=== PATIENT | female | born 1960 | race Caucasian/White ===

== ENCOUNTER 2023-07-24 07:22 | Outpatient (CLI) | payer OTHER, SELFPAY ==
--- NOTE | ~2023-07-24 | XR_ITS ---
EXAM: XR hip RT 2V w AP pelvis DATE: 07/24/2023 08:11 HISTORY: M25.551 - Pain in right hip . COMPARISON: None available. FINDINGS: Decreased mineralization. No fracture or dislocation. No lytic or blastic lesion. Severe l umbar degenerative disc disease. Mild-moderate right hip superior joint space narrowing and subchondr al sclerosis. Mild degenerative change present in the left hip and symphysis pubis. No erosion or per iosteal change. Soft tissues within normal limits. IMPRESSION: Mild-moderate right hip osteoarthritis. Reviewed, dictated and finalized at location K.
== END 2023-07-24 07:23 ==
PROVIDERS: PCP Orthopaedic Surgery; Visit Provider Family Medicine
DX: M16.11 Unilateral primary osteoarthritis, right hip (principal); M25.551 Pain in right hip
CPT/HCPCS: 73502

== ENCOUNTER 2024-04-24 13:32 | Outpatient (CLI) | payer SELFPAY ==
--- NOTE | ~2024-04-24 | XR_ITS ---
EXAMINATION: XR lg joint inject/asp w image DATE: 04/24/2024 14:29 INDICATION: Right hip arthritis. TECHNIQUE: A time-out was performed to verify the patient's name, date of , and procedure to b e performed. The procedure including the risks, benefits, and alternatives was discussed with the pat ient. Risks discussed included bleeding and infection. The patient understood the risks and agreed to proceed. The skin overlying the right hip joint was prepped and draped in usual sterile fashion. A nesthetic was administered with 1% lidocaine subcutaneously. A 22 G needle was advanced under fluoro scopic guidance into the joint. Subsequently, injectate consisting of 2 mL 0.5% bupivacaine and 1 mL 80 mg/mL Depo-Medrol was instilled. The needle was removed and the entry site was cleaned and dresse d. There were no immediate complications. Fluoroscopy exposure time was 0.1 minutes. The total numbe r of images was 1. FINDINGS: Real-time fluoroscopy demonstrates the needle in the right hip joint. Patient's pain prior to procedure:06/03. Patient's pain following the procedure: 11/03. IMPRESSION: 1. Fluoroscopy guided right hip joint injection of local anesthetic and steroid with decrease in the patient's presenting pain. Reviewed, dictated and finalized at location A.
== END 2024-04-24 13:33 | disposition home or self-care (01) ==
PROVIDERS: PCP Family Medicine; Visit Provider Nurse Practitioner Family
DX: M16.11 Unilateral primary osteoarthritis, right hip (principal)
CPT/HCPCS: 20610; 77002; J1010

== ENCOUNTER 2024-09-15 13:45 | Outpatient (CLI) | payer MEDICARE, SELFPAY ==
--- NOTE | ~2024-09-15 | XR_ITS ---
Procedure: Right hip injection with fluoroscopic guidance. INDICATION: Right hip pain. TECHNIQUE: A timeout was performed to verify the patient's name, date of and procedure to be pe rformed. The procedure including the risk and benefits were discussed to the patient. Risk discusse d included bleeding and infection. The patient understood the risk and agreed to proceed. The skin overlying the right femoral acetabular joint was prepped and draped in the usual sterile fashion. An esthetic was administered with 10 cc of 1% lidocaine subcutaneously. 22G needle was advanced under fl uoroscopic guidance into the glenohumeral joint space. Subsequently, injectate consisting of 2 cc of 0.5% bupivacaine, 80 mg of Depo, and 10 cc of 1% lidocaine was instilled. The needle removed and the entry site was cleaned and dressed. There were no immediate complications. FINDINGS: Real-time fluoroscopy demonstrates the needle and contrast in the right femoral acetabular joint. IMPRESSION: Technically successful fluoroscopically guided injection of the right hip, as detailed above. Fluoroscopy time: 1.1 minutes DOSE AREA PRODUCT: 5.6 Gy-cm2 2 images. Reviewed, dictated and finalized at location A. LDER PUNCHER IMPRESSION: Technically successful fluoroscopically guided injection of the right hip, as d etailed above. Fluoroscopy time: 1.1 minutes DOSE AREA PRODUCT: 5.6 Gy-cm2 2 images.
--- NOTE | 2024-09-15 15:15 | PM.OP ---
Procedure Note - Brief Procedure Note - Brief Date of procedure: 09/15/24 R hip arthritis Procedure performed: Fluoro guided R hip injection Surgeon: Evie Guevara MD Description of procedure: sterile technique fluoro guidance 22G needle utilize for arthrogram w 2cc omnipaque 80mg Depo, 4cc Marcaine, 12cc Lidocaine sterile dressing applied Estimated blood loss (mL): 0.1 Complications: No immediate complications Condition: Stable Disposition: Other (pt discharged to home)
== END 2024-09-15 13:46 | disposition home or self-care (01) ==
PROVIDERS: PCP Family Medicine; Visit Provider Nurse Practitioner Family
DX: M16.11 Unilateral primary osteoarthritis, right hip (principal)
CPT/HCPCS: 20610; 77002; J1010; J2003

== ENCOUNTER 2024-12-26 12:55 | Outpatient (CLI) | payer MEDICARE, SELFPAY ==
[2024-12-26 14:33] LABS: Basophils Percent Auto 0.4 % (0.2-1.2); Eosinophils Absolute Auto 0.1 K/mm3 (0-0.3); Eosinophils Percent Auto 1.6 % (0-4.4); Hematocrit 37.2 % (37.0-47.0); Hemoglobin 12.3 g/dL (12.0-15.0); Immature Granulocyte Absolute 0.03 K/mm3 (0.00-0.031); Immature Granulocyte Percent A 0.4 % (0-0.5); Lymphocytes Absolute Auto 2.87 K/mm3 (0.9-3.2); Lymphocytes Percent Auto 38.4 % (18.3-44.2); Mean Corpuscular HGB Conc 33.1 g/dl (32-36); Mean Corpuscular Hemoglobin 29.5 pg (26-34); Mean Corpuscular Volume 89.2 fl (80-100); Mean Platelet Volume 8.9 fl (7.4-10.4); Monocytes Absolute Auto 0.4 K/mm3 (0.1-0.6); Monocytes Percent Auto 4.8 % (2.6-8.5); Neutrophils Absolute Auto 4.1 K/mm3 (1.3-6.7); Neutrophils Percent Auto 54.4 % (45.5-73.1); Platelet Count Result 341 k/mm3 (150-375); Red Blood Count 4.17 M/mm3 (4.2-5.4); Red Cell Distribution Width 12.7 % (11.5-14.5); White Blood Count 7.5 K/mm3 (4.5-10.0)
[2024-12-26 14:35] LABS: Add Urine Microscopic? NO; Appearance Urine Clear (Clear); Bilirubin Urine Negative (Negative); Blood Urine Negative (Negative); Color Urine Yellow (Yellow); Glucose Urine UA Negative (Negative); Ketones Urine Negative (Negative); Leukocyte Esterase Ur Negative LEU/UL (Negative); Nitrate Urine Negative (Negative); Protein Urine Negative (Negative); Specific Grav Ur 1.007 (1.001-1.035); Urobilinogen Urine 0.2 mg/dL (<2.0); pH Urine 6.5 (5.0-9.0)
[2024-12-26 14:52] LABS: Urine Cotinine NEGATIVE
[2024-12-26 14:56] LABS: Potassium 3.1 mmol/L (3.4-5.0)
[2024-12-26 15:00] LABS: Albumin Level 4.3 g/dL (3.5-5.1); Anion Gap 8 mmol/L (4-12); Blood Urea Nitrogen 20 mg/dL (7-17); Calcium 9.1 mg/dL (8.4-10.2); Carbon Dioxide 31 mmol/L (22-30); Chloride 93 mmol/L (98-107); Estimated Glomerular Filt Rate > 60; Glucose 86 mg/dL (65-110); Sodium 132 mmol/L (137-145)
[2024-12-26 15:03] LABS: Atypical Lymphocytes Present; Platelet Estimate Adequate (Adequate); Schistocytes None Seen
[2024-12-26 15:07] LABS: INR 0.9; Prothrombin Time 12.9 Seconds (11.1-14.7)
[2024-12-26 15:08] LABS: Partial Thromboplastin Time 21.9 Seconds (22.3-36.8)
[2024-12-26 15:40] LABS: Hemoglobin A1C 5.8 % (<5.7)
[2024-12-26 15:44] LABS: MRSA (PCR) NOT DETECTED (NOT DETECTE)
== END 2024-12-26 12:56 | disposition home or self-care (01) ==
LOC: ANHSURGERY 13:00
PROVIDERS: PCP Family Medicine; Visit Provider Orthopaedic Surgery
DX: Z01.812 Encounter for preprocedural laboratory examination (principal); M16.11 Unilateral primary osteoarthritis, right hip
CPT/HCPCS: 80048; 80307; 81003; 82040; 83036; 85025; 85610; 85730; 87641

== ENCOUNTER 2025-01-09 00:16 | Day surgery (SDC) | payer MEDICARE, SELFPAY ==
[2024-12-26 13:23] VITALS: BP 139/79; PULSE 66; RESP 16; TEMP 36.6; O2SAT 98; BMI 28.0
--- NOTE | 2024-12-26 13:45 | PC.NURSE ---
Report to the Outpatient Waiting Room, entrance under the green pavilion located off [facility], at time __1030am on date __01/09/25 . Planned Procedure Time: __12:30pm .? Time changes happen often and if your time is changed the preop area will call you the afternoon before. - You and your visitor will be asked to self-screen and do not enter if you have any COVID symptoms. Please call surgeon if you need to reschedule. - A mask is optional within the hospital at this time. Patients may have clear liquids (water, carbonated beverages, clear teas, apple juice) until 3 hours prior to surgery with a maximum of 20 ounces. - No food from midnight until time of surgery and no smoking, or chewing tobacco (or any form of nicotine). No chewing gum, candy or mints. (0930am) Take only the following medications with a SIP of water on the morning of surgery: ____Levothyroxine,Citalopram, Cyclobenzaprine, Inhaler Breztry and Tylenol ES if needed , DO NOT STOP ANY OF YOUR OTHER PRESCRIPTION MEDICATIONS PRIOR TO SURGERY EXCEPT THE FOLLOWING Hold all vitamins and supplements for 3 days per anesthesiologist. Medications to discontinue per physician Meloxicam to hold 7 days prior to surgery per Dr Santoyo Date to take last dose_12/31/24 Please no make-up, nail cook islander, hairspray, perfume, deodorant, or body powder the day of surgery.? No jewelry (including any body piercings) or valuables the day of surgery, leave them at home.? Please take a shower or bath the night before, or the morning of, surgery with an antibacterial soap.HIBICLEANSE SCRUB? Wear comfortable, loose fitting clothing.? - Jewelry must be removed prior to entering the operating room.? Rings and piercings that are not removed may be cut off. - The hospital will not accept responsibility for valuables.? - Please leave all valuables, including medications, at home the day of surgery. If you are going home after surgery, a licensed front load trash truck driver must drive you home.? - NO public transportation without another adult if you receive anesthesia. - We recommend that an adult stay with you for 24 hours following discharge. - We also recommend that you do not drive, make important decision, drink alcoholic beverages, or take any drugs that were not prescribed by your health care provider for at least 24 hours after your discharge time. Follow any additional instructions given to you from your surgeon. Telephone instructions given to __ Patient and asked if any additional questions and then verbalized understanding. Patient advised to call surgeon office or pre surgery nurse liaison [phone] if any additional questions.
[2025-01-09] VITALS (14 sets, daily range): BP systolic 105–177; BP diastolic 55–83; PULSE 60–94; RESP 14–20; TEMP 35.6–36.7; O2SAT 93–100
--- NOTE | ~2025-01-09 | XR_ITS ---
XR hip RT min 2V Ordering provider: Jared Santoyo MD History: . POST-OP, RIGHT ARUN . Comparison: None. FINDINGS: BONES: No acute fracture or dislocation. HIP JOINT SPACES: Right hip arthroplasty. SOFT TISSUES: Normal. IMPRESSION: No acute osseous abnormality in the right hip. Right hip arthroplasty. Reviewed, dictated and finalized at location A.
[2025-01-09] MEDS: LACTATED RINGERS 1,000 ML 30 ML IV CONT ×2 (11:00→14:50)
[2025-01-09] MEDS: ACETAMINOPHEN 500 MG TABLET 1000 MG PO (11:00)
[2025-01-09] MEDS: TRANEXAMIC ACID 1,000MG/ISO100 1,000 MG/100 ML BAG 200 MG IVPB (11:00)
--- NOTE | 2025-01-09 11:24 | P.PNAN_ITS ---
Anes - Initial Pre Proc Eval Procedure: Operation Date: 01/09/25 12:30 Proposed Procedures p Right Total Hip Arthroplasty - Jared Santoyo MD Date/Time: 01/09/25 11:24 Surgeon: Jared Santoyo MD Pre Op Diagnosis: right hip oa Patient Data Age: 64 Gender: F Height: 1.6 m Weight: 71.8 kg Last Vital Signs Temp 36.6 C 12/26/24 13:23 Pulse 66 12/26/24 13:23 Resp 16 12/26/24 13:23 BP 139/79 12/26/24 13:23 Pulse Ox 98 12/26/24 13:23 O2 Del Method Room Air 12/26/24 13:23 Allergies Allergy/AdvReac Type Severity Reaction Status Date / Time fluoxetine Allergy Unknown Unknown Verified 12/26/24 13:18 paroxetine Allergy Unknown Unknown Verified 12/26/24 13:18 Penicillins Allergy Unknown Skin Verified 12/26/24 13:18 Reaction atorvastatin AdvReac Unknown Muscle pain Verified 01/09/25 07:42 Sulfa (Sulfonamide AdvReac Unknown headache Verified 01/09/25 07:42 Antibiotics) Home Medications ?Medication ?Instructions ?Recorded ?Confirmed ?Type nebulizer and supplies #1 ea 05/25/23 12/26/24 Rx montelukast 10 mg tablet See Rx Instructions .Route 06/12/24 12/26/24 Rx .COMPLEX #90 tabs cyclobenzaprine 10 mg tablet 10 mg PO TID PRN muscle spasm #30 07/26/24 12/26/24 Rx tabs meloxicam 7.5 mg tablet See Rx Instructions .Route 08/23/24 12/26/24 Rx .COMPLEX #30 tabs citalopram 20 mg tablet See Rx Instructions .Route 09/25/24 12/26/24 Rx .COMPLEX #90 tabs metoprolol succinate 50 mg See Rx Instructions .Route 10/19/24 12/26/24 Rx tablet,extended release 24 hr .COMPLEX #180 tabs levothyroxine 88 mcg tablet 88 mcg PO DAILY #90 tabs 10/31/24 12/26/24 Rx budesonide 160 mcg-glycopyr 9 2 inh inhalation QAM AND QPM #10.7 11/08/24 12/26/24 Rx mcg-formot 4.8 mcg/actuation HFA grams inhaler (Breztri Aerosphere) albuterol sulfate 90 mcg/actuation See Rx Instructions .Route 12/13/24 12/26/24 Rx aerosol inhaler .COMPLEX #8.5 ea chlorhexidine gluconate 4 % 1 applic topical ONCE #237 mL 12/18/24 12/26/24 Rx topical liquid (Hibiclens) albuterol sulfate 0.63 mg/3 mL 0.63 mg (3 mL) inhalation Q4-6H 12/27/24 Rx solution for nebulization PRN shortness of breath or wheezing #270 mL ipratropium bromide 0.02 % 2.5 ml inhalation Q8H PRN 12/27/24 Rx solution for inhalation shortness of breath or wheezing #150 mL losartan 100 mg tablet 100 mg PO DAILY #30 tabs 12/27/24 Rx Patient hx anesthesia problems: none Family hx anesthesia problems: none Results Review: All pre-operative results and documents have been reviewed as part of the pre- operative evaluation. [facility] Past Medical History Medical History Degenerative joint disease (DJD) of hip Right hip pain Family history of aneurysm Osteoarthritis, hand delivery delivered Anxiety Benign essential hypertension Human papilloma virus (HPV) DNA test positive Gastro-esophageal reflux disease without esophagitis Hypothyroidism (acquired) Mixed hyperlipidemia Surgical History Surgical History History of knee surgery Family History Family History Mother Family history of elevated blood lipids Father Family history of malignant neoplasm Other Family history of malignant neoplasm of breast Social History Social History Social History: CAFFEINE USE Smoking packs per day: 1 Smoking cigarettes per day: 20.0 Years smoked: 25 Smoking pack-years: 25.00 Smoking status: Former smoker Tobacco type: cigarettes Second hand tobacco smoke exposure: No Smoking end date: 10/25/16 Alcohol intake: never Substance use: current Substance use type: marijuana Other substance usage details: Gummies few times a month to help sleep Lack of Transportation: No Lack of Food: Never True Current Housing: I Have Housing Concerned About Future Housing: No Difficulty Paying Gas/Electric Bills: No Difficulty Paying for Meds: No Currently Unemployed: No Education: High School Diploma/GED Difficulty w/ Childcare or Family Care: No Living arrangements: alone Occupation/Education: occupation Additional occupation/education comments: MEDICAL BILLING- [employer] Spiritual care concerns: No Anes - Eval Final PreProcedure Day of Procedure 01/09/25 11:24 Patient weight: overweight Heart: regular rate and rhythm Lungs: clear to auscultation Airway: Mallampati scale class II Neurological: alert and oriented Last oral intake: >/= 8 hours ASA classification: III Emergent: no Anesthetic plan: proceed Anesthesia type and monitoring: general ETT and standard monitoring Results Review: All pre-operative results and documents have been reviewed as part of the pre- operative evaluation. Informed Consent: The patient's anesthetic plan and its attendant risks and benefits were discussed with the patient/family/POA. Questions were solicited and answers provided to the satisfaction of the patient/family/POA.
--- NOTE | 2025-01-09 12:17 | WPDHPUPDATE1 ---
History and Physical Update Update Date/Time: 01/09/25 12:17 History and Physical has been reviewed, including an updated exam of the patient. There are NO changes in the patient's condition. Risks, benefits, and alternatives have been discussed and questions answered. Patient agrees to proceed with procedure.
[2025-01-09] MEDS: ceFAZolin 2 GM/D5W 50 ML 2 GM/50 ML BAG IVPB ×2 (12:30→20:50)
[2025-01-09] MEDS: SODIUM CHLORIDE 0.9% IV 37.7 ML, MORPHINE SULFATE INJ (*CRX) 2 MG, ROPivacaine HCL 1% 2... INFILTRATE (13:09)
[2025-01-09] MEDS: TRANEXAMIC ACID 1,000 MG/10 ML AMPUL 1000 MG IV PUSH (14:14)
--- NOTE | 2025-01-09 14:56 | W.PM.PROC2 ---
Procedure Note - Detailed Date of Procedure 01/09/25 Pre-op Diagnosis right hip oa Post-op Diagnosis Same Procedure Performed R ARUN Surgeon Jared Santoyo MD Anesthesia General Description of Procedure THE PATIENT WAS TAKEN TO THE OPERATING ROOM IN STABLE CONDITION AND WAS PLACED IN THE LATERAL DECUBITUS AND THE RIGHT LOWER EXTREMITY WAS PREPPED AND DRAPED IN THE STERILE FASHION. INCISION WAS MADE IN THE POSTERIOR LATERAL SIDE OF THE HIP, DOWN TO THE FASCIA LAYER. THE FASCIA WAS INCISED. THE HIP WAS EXPOSED. THE SHORT EXTERNAL ROTATORS WERE EXPOSED. THE SCIATIC NERVE WAS IDENTIFIED. INCISION WAS MADE THROUGH THE SHORT EXTERNAL ROTATORS AND THE CAPSULE OF THE HIP JOINT. THE HIP WAS DISLOCATED. AN OSTEOTOMY WAS MADE TO THE FEMORAL NECK ABOUT 1 CM PROXIMAL TO THE LESSER TROCHANTER. THE ACETABULUM WAS EXPOSED. THERE WAS SEVERE DJD SEEN. BEGINNING WITH A 44 REAMER THE ACETABULUM WAS REAMED TO 51 MM. A 51 MM TRIAL WAS PLACED IN 35 DEG OF ABDUCTION AND ANTEVERSION WAS IN ALIGNMENT WITH THE TRANS ACETABULAR LIGAMENT. THE FIT WAS EXCELLENT. THE TRIAL WAS REMOVED. A 52 MM BIOMET G7 COMPONENT WAS THEN TAPPED IN TO PLACE IN 35 DEG OF ABDUCTION AND ANTEVERSION IN ALIGNMENT WITH THE TRANSVERSE ACETABULAR LIGAMENT. THE FIT WAS EXCELLENT. THE ACETABULAR LINER WAS PLACED AND CHECKED FOR STABILITY. NEXT THE FEMUR WAS PREPARED WITH INITIAL CANAL FINDER THEN SEQUENTIAL BROACHING WITH A TAPERLOC HIP SYSTEM, UNTIL A 7 BROACH FIT WELL IN 15 OF ANTEVERSION. A -6 STANDARD OFFSET NECK WITH 36 MM HEAD TRIAL WAS PLACED. THE SHUCK TEST WAS EXCELLENT AND THE STABILITY IN FLEXION AND ROTATION WAS EXCELLENT. LEG LENGTHS WERE GROSSLY EQUAL. TRIALS WERE REMOVED. A BIOMET TAPERLOC 7 STEM WAS PLACED WITH A STANDARD OFFSET NECK. THE FIT WAS EXCELLENT IN 15 DEG OF ANTEVERSION. A -6 CERAMIC 36 MM FEMORAL HEAD WAS PLACED. THE HIP WAS TRIALED AND THE STABILITY WAS EXCELLENT WERE THE LEG LENGTHS AND THE SHUCK TEST. THE WOUND WAS IRRIGATED WITH STERILE BETADINE AND WATER FOR 3 MIN. THEN WASHED AGAIN. THE CAPSULE AND THE EXTERNAL ROTATORS WERE APPROXIMATED WITH NUMBER 1 VICRYL. THE FASCIA WITH No 2 QUIL AND THE SUB CUTANEOUS LAYER WITH 2-0 ABSORBABLE SUTURE WITH A RUNNING 3-0 SUBCUTICULAR LAYER WELL. DERMABOND WAS PLACED AND STERILE DRESSING WAS APPLIED. PATIENT WAS PLACED BACK ON TO THE SUPINE POSITION AND WAS EXTUBATED. PATIENT DEMONSTRATED INTACT DORSI AND PLANTAR FLEXION IN THE RECOVERY ROOM. Estimated Blood Loss 200 Complications No immediate complications Condition Stable Disposition PACU
[2025-01-09] MEDS: ONDANSETRON INJ 4 MG/2 ML VIAL IV PUSH ×2 (15:27→17:35)
[2025-01-09] MEDS: KETOROLAC 15 MG/ML VIAL (*BKC) IV PUSH ×2 (17:17→23:12)
[2025-01-09] MEDS: SENNA/DOCUSATE SODIUM TABLET 2 TAB PO (17:29)
[2025-01-09] MEDS: SODIUM CHLORIDE 0.9% IV 1,000 ML 125 ML IV CONT (17:35)
[2025-01-09] MEDS: ASPIRIN 325 MG ENTERIC TABLET PO (20:50)
[2025-01-09] MEDS: FAMOTIDINE 20 MG TABLET PO (20:50)
[2025-01-09] MEDS: oxyCODONE/ACETAMINOPHEN (*CRX) 5-325 MG TABLET 1 TABLET PO (21:02)
[2025-01-10] VITALS (9 sets, daily range): BP systolic 118–157; BP diastolic 65–85; PULSE 77–94; RESP 16–20; TEMP 36.2–36.5; O2SAT 97–99
[2025-01-10] MEDS: SODIUM CHLORIDE 0.9% IV 1,000 ML 125 ML IV CONT ×2 (02:30→12:09)
[2025-01-10] MEDS: ceFAZolin 2 GM/D5W 50 ML 2 GM/50 ML BAG IVPB ×2 (04:04→12:08)
[2025-01-10] MEDS: KETOROLAC 15 MG/ML VIAL (*BKC) IV PUSH ×3 (05:27→17:06)
[2025-01-10] MEDS: LEVOTHYROXINE SODIUM 88 MCG TABLET PO (05:27)
[2025-01-10 06:36] LABS: Basophils Percent Auto 0.1 % (0.2-1.2); Hematocrit 29.8 % (37.0-47.0); Hemoglobin 9.7 g/dL (12.0-15.0); Immature Granulocyte Absolute 0.06 K/mm3 (0.00-0.031); Immature Granulocyte Percent A 0.5 % (0-0.5); Lymphocytes Absolute Auto 0.86 K/mm3 (0.9-3.2); Lymphocytes Percent Auto 6.7 % (18.3-44.2); Mean Corpuscular HGB Conc 32.6 g/dl (32-36); Mean Corpuscular Hemoglobin 30.3 pg (26-34); Mean Corpuscular Volume 93.1 fl (80-100); Mean Platelet Volume 9.2 fl (7.4-10.4); Monocytes Absolute Auto 0.8 K/mm3 (0.1-0.6); Monocytes Percent Auto 6.2 % (2.6-8.5); Neutrophils Absolute Auto 11.1 K/mm3 (1.3-6.7); Neutrophils Percent Auto 86.5 % (45.5-73.1); Platelet Count Result 263 k/mm3 (150-375); Red Cell Distribution Width 13.5 % (11.5-14.5); White Blood Count 12.8 K/mm3 (4.5-10.0)
[2025-01-10 06:53] LABS: Anion Gap 8 mmol/L (4-12); Blood Urea Nitrogen 14 mg/dL (7-17); Calcium 8.6 mg/dL (8.4-10.2); Carbon Dioxide 22 mmol/L (22-30); Chloride 104 mmol/L (98-107); Estimated CRCL calculation 68 ml/min; Estimated Glomerular Filt Rate > 60; Glucose 139 mg/dL (65-110); Potassium 3.8 mmol/L (3.4-5.0); Sodium 134 mmol/L (137-145)
[2025-01-10] MEDS: polyethylene glycoL 3350 17 GM POWD.PACK PO (08:19)
[2025-01-10] MEDS: ACETAMINOPHEN 500 MG TABLET PO (08:19)
[2025-01-10] MEDS: FAMOTIDINE 20 MG TABLET PO ×2 (08:22→20:45)
[2025-01-10] MEDS: ASPIRIN 325 MG ENTERIC TABLET PO ×2 (08:23→20:44)
[2025-01-10] MEDS: CITALOPRAM HYDROBROMIDE 20 MG TABLET BY MOUTH (08:23)
[2025-01-10] MEDS: LOSARTAN POTASSIUM 100 MG TABLET PO (08:23)
[2025-01-10] MEDS: METOPROLOL SUCCINATE EXT REL 50 MG TABCR 100 MG BY MOUTH (08:23)
[2025-01-10] MEDS: SENNA/DOCUSATE SODIUM TABLET 2 TAB PO ×2 (08:24→17:11)
[2025-01-10] MEDS: ALBUTEROL SULFATE (*SP) AEROSOL 1 PUFF 2 PUFF INHALATION (08:26)
[2025-01-10] MEDS: ONDANSETRON INJ 4 MG/2 ML VIAL IV PUSH (08:26)
[2025-01-10] MEDS: FLUTICASONE/UMECLIDIN/VILANTER 100-62.5-25 MCG ELLIPTA 1 PUFF INHALATION (08:26)
--- NOTE | 2025-01-10 09:28 | P.PNOP_ITS ---
Progress Note: A&P Assessment and Plan (1) S/P total hip arthroplasty: Qualifiers: Laterality: right Qualified Code(s): Z96.641 - Presence of right artificial hip joint Code(s): Z96.649 - Presence of unspecified artificial hip joint Status: Acute Assessment and Plan: POD #1 : Right ARUN Continue PT/OT. WBAT. Walker. HIGH FALL RISK. Continue pain control. Ice Hip. Protect skin. DVT prophylaxis with Aspirin. SCDs. Incentive Spirometry Use reviewed. Monitor Dressing. Change prior to discharge. Bowel Regimen. Dispo: Home with Home Health pending progress with PT/OT Subjective Subjective Date/Time Seen: 01/10/25 09:28 Post Op day: 1 Interval history: POD #1: R ARUN Patient awake/alert. Reports c/o nausea overnight. Decreased appetite this AM. Awaiting PT/OT. Lives at home alone, worried about d/c today. Review of Systems Review of Systems: All systems reviewed & are unremarkable except as noted in HPI and below Constitutional: Constitutional: Denies chills, Denies fever(s), Denies headache(s), Denies lethargy and Reports weakness ENT: Denies headache(s) Cardiovascular: Cardiovascular: Denies chest pain, Denies diaphoresis, Denies lightheadedness, Denies palpitations, Denies dyspnea and Denies dyspnea on exertion Respiratory: Respiratory: Denies cough, Denies dyspnea and Denies dyspnea on exertion Gastrointestinal: Gastrointestinal: Denies constipation, Denies diarrhea, D enies nausea and Denies vomiting Genitourinary: Genitourinary: Reports urinary frequency, Denies dysuria and Denies urinary hesitancy Musculoskeletal: Musculoskeletal: Reports joint swelling (Right Hip ) and Reports limited range of motion (Right Hip due to recent surgery ) Neurologic: Denies headache(s) and Reports weakness Endocrine: Endocrine: Denies palpitations Exam Const: General: comfortable and no acute distress Resp: Effort & Inspection: normal respiratory effort Cardio: Rate: regular rate Rhythm: regular rhythm GI: Inspection: non-distended Skin: General skin exam: normal color Other: Incision right hip c/d/i. Surrounding tissue without redness/warmth. Mild swelling consistent with recent surgery. No drainage. Neuro: Cognition (Neuro): normal cognition Speech: normal speech Extrem: Right lower extremity: normal to inspection, normal capillary refill, hip/thigh Details: tenderness Location: of the hip (Thigh soft ) Location: laterally and anteriorly, swelling Location: at the hip, abnormal ROM (limited consistent with recent surgery ) Details: pain with active ROM during and pain with passive ROM during and other (Incision c/d/i. ); no deformity and no unusual warmth, knee Details: normal to inspection; no tenderness and no swelling, lower leg (Negative Leslie's Sign ) Details: normal to inspection and no edema; no tenderness, ankle (+ankle dorsiflexion/plantarflexion) Details: normal to inspection and no edema; no tenderness, no swelling and no ecchymosis and foot Details: normal capillary refill, toes with normal ROM, vascular exam Details: dorsalis pedis pulse present and motor-sensory exam Details: light- touch normal; no tenderness Objective Data Vital Signs Vital Signs: Vital Signs - 24 hr 01/09/25 12:00 01/09/25 14:50 01/09/25 14:55 Temperature 36.7 C 36.4 C Pulse Rate 60 79 Respiratory Rate 14 14 Blood Pressure 177/83 H 135/70 Pulse Oximetry 100 100 100 Oxygen Delivery Room Air Simple Face Mask Simple Face Mask Oxygen Flow Rate 5 5 01/09/25 15:05 01/09/25 15:20 01/09/25 15:35 Temperature Pulse Rate 94 87 84 Respiratory Rate 14 18 14 Blood Pressure 136/74 143/71 H 123/69 Pulse Oximetry 100 100 93 Oxygen Delivery Simple Face Mask Simple Face Mask Room Air Oxygen Flow Rate 5 5 01/09/25 15:50 01/09/25 16:05 01/09/25 16:20 Temperature Pulse Rate 83 82 83 Respiratory Rate 14 14 16 Blood Pressure 117/73 119/64 122/65 Pulse Oximetry 95 95 94 Oxygen Delivery Room Air Room Air Room Air Oxygen Flow Rate 01/09/25 16:40 01/09/25 16:55 01/09/25 17:25 Temperature 35.6 C L 35.8 C L 35.8 C L Pulse Rate 83 83 83 Respiratory Rate 16 16 18 Blood Pressure 105/59 L 117/69 111/55 L Pulse Oximetry 97 98 96 Oxygen Delivery Oxygen Flow Rate 01/09/25 18:25 01/09/25 21:34 01/10/25 00:00 Temperature 35.8 C L 36.4 C L 36.5 C Pulse Rate 84 83 88 Respiratory Rate 18 20 20 Blood Pressure 135/73 125/71 118/65 Pulse Oximetry 98 99 99 Oxygen Delivery Oxygen Flow Rate 01/10/25 06:01 01/10/25 08:00 01/10/25 08:23 Temperature 36.2 C L 36.2 C L Pulse Rate 88 91 94 Respiratory Rate 20 16 Blood Pressure 138/76 138/85 Pulse Oximetry 98 97 Oxygen Delivery Oxygen Flow Rate 01/10/25 08:32 Temperature Pulse Rate Respiratory Rate Blood Pressure Pulse Oximetry 98 Oxygen Delivery Room Air Oxygen Flow Rate Intake/Output Intake/Output: Intake & Output 01/07/25 01/08/25 01/09/25 01/10/25 23:59 23:59 23:59 23:59 Intake Total 600 1000 Balance 600 1000 Meds/Results Medications: Active Medications Generic Name Dose Route Start Last Admin Trade Name Freq PRN Reason Stop Dose Admin Acetaminophen 500 mg 01/09/25 16:27 01/10/25 08:19 Acetaminophen 500 Mg Tablet PO 500 mg Q6H PRN Administration Pain Rated 1-3 Albuterol 2 puff 01/09/25 16:27 01/10/25 08:26 Albuterol Sulfate (*Sp) Aerosol 1 Puff INHALATION 2 puff Q4H PRN Administration Shortness Of Breath/Wheezing Aspirin 325 mg 01/09/25 21:00 01/10/25 08:23 Aspirin 325 Mg Enteric Tablet PO 325 mg Q12HR FELICITA Administration Citalopram Hydrobromide 20 mg 01/10/25 09:00 01/10/25 08:23 Citalopram Hydrobromide 20 Mg Tablet BY MOUTH 20 mg DAILY FELICITA Administration Cyclobenzaprine HCl 10 mg 01/09/25 16:27 Cyclobenzaprine Hcl 10 Mg Tablet PO TID PRN muscle spasm Diazepam 5 mg 01/09/25 16:27 Diazepam (*Crx) 5 Mg Tablet PO Q6H PRN Anxiety/Muscle Spasm Diphenhydramine HCl 25 mg 01/09/25 16:27 Diphenhydramine Hcl Inj 50 Mg/Ml Vial IV PUSH Q6H PRN Itching Famotidine 20 mg 01/09/25 21:00 01/10/25 08:22 Famotidine 20 Mg Tablet PO 20 mg Q12HR FELICITA Administration Fluticasone/Umeclidinium/Vilanterol 1 puff 01/10/25 08:00 01/10/25 08:26 Fluticasone/Umeclidin/Vilanter 100-62.5-25 Mcg Ellipta INHALATION 1 puff DAILYRT FELICITA Administration Hydromorphone HCl 1 mg 01/09/25 16:27 Hydromorphone Hcl Inj (*Crx) 1 Mg/Ml Syr IV PUSH Q2H PRN Breakthrough Pain Rated 7-10 or NPO Hydromorphone HCl 0.5 mg 01/09/25 16:27 Hydromorphone Hcl Inj (*Crx) 1 Mg/Ml Syr IV PUSH Q2H PRN Breakthrough Pain Rated 4-6 or NPO Sodium Chloride 1,000 mls @ 125 mls/hr 01/09/25 16:27 01/10/25 02:30 Normal Saline Iv IV CONT 125 mls/hr .Q8H FELICITA Administration Cefazolin Sodium 2 gm in 50 mls @ 100 mls/hr 01/09/25 20:30 01/10/25 04:04 Ancef 2 Gm/D5w 50 Ml IVPB 01/10/25 12:59 100 mls/hr Q8H FELICITA Administration Ibuprofen 800 mg in 200 mls @ 400 mls/hr 01/09/25 16:27 Caldolor 800 Mg/200 Ml IVPB Q6H PRN Breakthrough Pain Rated 1-3 or NPO Ketorolac Tromethamine 15 mg 01/09/25 18:00 01/10/25 05:27 Ketorolac 15 Mg/Ml Vial (*Bkc) IV PUSH 01/10/25 18:01 15 mg Q6HR FELICITA Administration Levothyroxine Sodium 88 mcg 01/10/25 06:30 01/10/25 05:27 Levothyroxine Sodium 88 Mcg Tablet PO 88 mcg DAILY@0630 FELICITA Administration Losartan Potassium 100 mg 01/10/25 09:00 01/10/25 08:23 Losartan Potassium 100 Mg Tablet PO 100 mg DAILY FELICITA Administration Metoprolol Succinate 100 mg 01/10/25 09:00 01/10/25 08:23 Metoprolol Succinate Ext Rel 50 Mg Tabcr BY MOUTH 100 mg DAILY FELICITA Administration Naloxone HCl 0.1 mg 01/09/25 16:27 Naloxone Hcl 0.4 Mg/Ml Vial IV PUSH Q2M PRN Opiate Reversal Ondansetron HCl 4 mg 01/09/25 16:27 01/10/25 08:26 Ondansetron Inj 4 Mg/2 Ml Vial IV PUSH 4 mg Q4H PRN Administration Nausea And Vomiting Oxycodone/Acetaminophen 1 tablet 01/09/25 16:27 01/09/25 21:02 Oxycodone/Acetaminophen (*Crx) 5-325 Mg Tablet PO 1 tablet Q4H PRN Administration Pain Rated 4-6 Oxycodone/Acetaminophen 1 tab 01/09/25 16:27 Oxycodone/Acetaminophen (*Crx) 10-325 Mg Tablet PO Q6H PRN Pain Rated 7-10 Polyethylene Glycol 17 gm 01/10/25 09:00 01/10/25 08:19 Polyethylene Glycol 3350 17 Gm Powd.Pack PO 17 gm QAM FELICITA Administration Senna/Docusate Sodium 2 tab 01/09/25 17:00 01/10/25 08:24 Senna/Docusate Sodium Tablet PO 2 tab BID FELICITA Administration Radiology Results: ITS Impressions Hip X-Ray 01/09/25 15:51 IMPRESSION: No acute osseous abnormality in the right hip. Right hip arthroplasty. Labs Labs: Laboratory Results - last 24 hr 01/09/25 01/10/25 10:51 06:18 WBC 12.8 H RBC 3.20 L Hgb 9.7 L Hct 29.8 L MCV 93.1 MCH 30.3 MCHC 32.6 RDW 13.5 Plt Count 263 MPV 9.2 Immature Gran % (Auto) 0.5 Neut % (Auto) 86.5 H Lymph % (Auto) 6.7 L Bracken % (Auto) 6.2 Eos % (Auto) 0.0 Baso % (Auto) 0.1 L Lymph # (Auto) 0.86 L Bracken # (Auto) 0.8 H Eos # (Auto) 0.0 Baso # (Auto) 0.0 Abs Immat Gran (auto) 0.06 H Absolute Neuts (auto) 11.1 H Absolute Nucleated RBC 0.000 Nucleated RBC % 0.0 Sodium 134 L Potassium 3.8 Chloride 104 Carbon Dioxide 22 Anion Gap 8 BUN 14 D Creatinine 0.67 L Estim Creat Clear Calc 68 Estimated GFR > 60 Glucose 139 H Calcium 8.6 Blood Type O Positive Antibody Screen Negative Quality VTE Prophylaxis VTE prophylaxis: mechanical ordered
--- NOTE | 2025-01-10 10:09 | P.PNAN_ITS ---
Anes - Prog Note Post-Op Date/Time: 01/10/25 10:09 Cardiovascular status: normal Respiratory status: normal Airway patency: baseline Mental status: baseline Post-Op hydration status: normal Vital Signs: Last Vital Signs Temp 36.2 C L 01/10/25 08:00 Pulse 94 01/10/25 08:23 Resp 16 01/10/25 08:00 BP 138/85 01/10/25 08:00 Pulse Ox 98 01/10/25 08:32 O2 Del Method Room Air 01/10/25 08:32 O2 Flow Rate 5 01/09/25 15:20 Pain Score (VAS): 2 I/O: Intake & Output 01/09/25 01/10/25 01/10/25 23:59 07:59 15:59 Intake Total 450 1000 Balance 450 1000 Laboratory Tests 01/10/25 06:18 01/10/25 06:18 01/09/25 01/10/25 10:51 06:18 WBC 12.8 H RBC 3.20 L Hgb 9.7 L Hct 29.8 L MCV 93.1 MCH 30.3 MCHC 32.6 RDW 13.5 Plt Count 263 MPV 9.2 Immature Gran % (Auto) 0.5 Neut % (Auto) 86.5 H Lymph % (Auto) 6.7 L [place] % (Auto) 6.2 Eos % (Auto) 0.0 Baso % (Auto) 0.1 L Lymph # (Auto) 0.86 L [place] # (Auto) 0.8 H Eos # (Auto) 0.0 Baso # (Auto) 0.0 Abs Immat Gran (auto) 0.06 H Absolute Neuts (auto) 11.1 H Absolute Nucleated RBC 0.000 Nucleated RBC % 0.0 Sodium 134 L Potassium 3.8 Chloride 104 Carbon Dioxide 22 Anion Gap 8 BUN 14 D Creatinine 0.67 L Estim Creat Clear Calc 68 Estimated GFR > 60 Glucose 139 H Calcium 8.6 Blood Type O Positive Antibody Screen Negative Post-procedural complaints: none Patient Feedback: Patient satisfied with anesthetic care.
[2025-01-10] MEDS: oxyCODONE/ACETAMINOPHEN (*CRX) 5-325 MG TABLET 1 TABLET PO (10:45)
[2025-01-10] MEDS: oxyCODONE/ACETAMINOPHEN (*CRX) 10-325 MG TABLET 1 TAB PO (20:53)
[2025-01-10] MEDS: CYCLOBENZAPRINE HCL 10 MG TABLET PO (20:53)
[2025-01-11 05:29] VITALS: BP 152/74; PULSE 92; RESP 16; TEMP 37.2; O2SAT 97
[2025-01-11] MEDS: LEVOTHYROXINE SODIUM 88 MCG TABLET PO (06:45)
[2025-01-11] MEDS: CYCLOBENZAPRINE HCL 10 MG TABLET PO (08:48)
[2025-01-11] MEDS: oxyCODONE/ACETAMINOPHEN (*CRX) 5-325 MG TABLET 1 TABLET PO (08:48)
[2025-01-11] MEDS: SENNA/DOCUSATE SODIUM TABLET 2 TAB PO (08:49)
[2025-01-11] MEDS: polyethylene glycoL 3350 17 GM POWD.PACK PO (08:50)
[2025-01-11] MEDS: CITALOPRAM HYDROBROMIDE 20 MG TABLET BY MOUTH (08:50)
[2025-01-11] MEDS: FAMOTIDINE 20 MG TABLET PO (08:50)
[2025-01-11] MEDS: METOPROLOL SUCCINATE EXT REL 50 MG TABCR 100 MG BY MOUTH (08:50)
[2025-01-11] MEDS: ASPIRIN 325 MG ENTERIC TABLET PO (08:50)
[2025-01-11] MEDS: LOSARTAN POTASSIUM 100 MG TABLET PO (08:50)
--- NOTE | 2025-01-11 09:05 | P.PNOP_ITS ---
Progress Note: A&P Assessment and Plan (1) S/P total hip arthroplasty: Qualifiers: Laterality: right Qualified Code(s): Z96.641 - Presence of right artificial hip joint Code(s): Z96.649 - Presence of unspecified artificial hip joint Status: Acute Assessment and Plan: POD #2: Right ARUN Continue PT/OT. WBAT. Walker. HIGH FALL RISK. Labs stable. Vitals stable. Continue pain control. Ice Hip. Protect skin. DVT prophylaxis with Aspirin. SCDs. Incentive Spirometry Use reviewed. Monitor Dressing. Change prior to discharge. Bowel Regimen. Dispo: Home with Home Health today Follow up scheduled in the outpatient orthopedic clinic. Subjective Subjective Date/Time Seen: 01/11/25 09:05 Post Op day: 2 Interval history: POD #2: R ARUN Patient awake/alert. Reports improvement with nausea/vomiting and increased appetite. Good progress with PT/OT. Walking in the halls without difficulties. Using walker for safety. Review of Systems Review of Systems: All systems reviewed & are unremarkable except as noted in HPI and below Constitutional: Constitutional: Denies chills, Denies fever(s), Denies headache(s), Denies lethargy and Reports weakness ENT: Denies headache(s) Cardiovascular: Cardiovascular: Denies chest pain, Denies diaphoresis, Denies lightheadedness, Denies palpitations, Denies dyspnea and Denies dyspnea on exertion Respiratory: Respiratory: Denies cough, Denies dyspnea and Denies dyspnea on exertion Gastrointestinal: Gastrointestinal: Denies constipation, Denies diarrhea, Denies nausea and Denies vomiting Genitourinary: Genitourinary: Reports urinary frequency, Denies dysuria and Denies urinary hesitancy Musculoskeletal: Musculoskeletal: Reports joint swelling (Right Hip ) and Reports limited range of motion (Right Hip due to recent surgery ) Neurologic: Denies headache(s) and Reports weakness Endocrine: Endocrine: Denies palpitations Exam Const: General: comfortable and no acute distress Resp: Effort & Inspection: normal respiratory effort Cardio: Rate: regular rate Rhythm: regular rhythm GI: Inspection: non-distended Skin: General skin exam: normal color Other: Incision right hip c/d/i. Surrounding tissue without redness/warmth. Mild swelling consistent with recent surgery. No drainage. Neuro: Cognition (Neuro): normal cognition Speech: normal speech Extrem: Right lower extremity: normal to inspection, normal capillary refill, hip/thigh Details: tenderness Location: of the hip (Thigh soft ) Location: laterally and anteriorly, swelling Location: at the hip, abnormal ROM (limited consistent with recent surgery ) Details: pain with active ROM during and pain with passive ROM during and other (Incision c/d/i. ); no deformity and no unusual warmth, knee Details: normal to inspection; no tenderness and no swelling, lower leg (Negative Leslie's Sign ) Details: normal to inspection and no edema; no tenderness, ankle (+ankle dorsiflexion/plantarflexion) Details: normal to inspection and no edema; no tenderness, no swelling and no ecchymosis and foot Details: normal capillary refill, toes with normal ROM, vascular exam Details: dorsalis pedis pulse present and motor-sensory exam Details: light- touch normal; no tenderness Objective Data Vital Signs Vital Signs: Vital Signs - 24 hr 01/10/25 09:27 01/10/25 12:00 01/10/25 12:43 Temperature 36.2 C L Pulse Rate 88 Respiratory Rate 16 Blood Pressure 148/71 H Pulse Oximetry 99 Oxygen Delivery Room Air Room Air 01/10/25 16:00 01/10/25 20:00 01/10/25 20:29 Temperature 36.2 C L 36.3 C L Pulse Rate 77 77 80 Respiratory Rate 16 16 18 Blood Pressure 119/82 157/74 H Pulse Oximetry 99 99 97 Oxygen Delivery Room Air 01/11/25 05:29 Temperature 37.2 C Pulse Rate 92 Respiratory Rate 16 Blood Pressure 152/74 H Pulse Oximetry 97 Oxygen Delivery Intake/Output Intake/Output: Intake & Output 01/08/25 01/09/25 01/10/25 01/11/25 23:59 23:59 23:59 23:59 Intake Total 600 3290 300 Balance 600 3290 300 Meds/Results Medications: Active Medications Generic Name Dose Route Start Last Admin Trade Name Freq PRN Reason Stop Dose Admin Acetaminophen 500 mg 01/09/25 16:27 01/10/25 08:19 Acetaminophen 500 Mg Tablet PO 500 mg Q6H PRN Administration Pain Rated 1-3 Albuterol 2 puff 01/09/25 16:27 01/10/25 08:26 Albuterol Sulfate (*Sp) Aerosol 1 Puff INHALATION 2 puff Q4H PRN Administration Shortness Of Breath/Wheezing Aspirin 325 mg 01/09/25 21:00 01/11/25 08:50 Aspirin 325 Mg Enteric Tablet PO 325 mg Q12HR FELICITA Administration Citalopram Hydrobromide 20 mg 01/10/25 09:00 01/11/25 08:50 Citalopram Hydrobromide 20 Mg Tablet BY MOUTH 20 mg DAILY FELICITA Administration Cyclobenzaprine HCl 10 mg 01/09/25 16:27 01/11/25 08:48 Cyclobenzaprine Hcl 10 Mg Tablet PO 10 mg TID PRN Administration muscle spasm Diazepam 5 mg 01/09/25 16:27 Diazepam (*Crx) 5 Mg Tablet PO Q6H PRN Anxiety/Muscle Spasm Diphenhydramine HCl 25 mg 01/09/25 16:27 Diphenhydramine Hcl Inj 50 Mg/Ml Vial IV PUSH Q6H PRN Itching Famotidine 20 mg 01/09/25 21:00 01/11/25 08:50 Famotidine 20 Mg Tablet PO 20 mg Q12HR FELICITA Administration Fluticasone/Umeclidinium/Vilanterol 1 puff 01/10/25 08:00 01/10/25 08:26 Fluticasone/Umeclidin/Vilanter 100-62.5-25 Mcg Ellipta INHALATION 1 puff DAILYRT FELICITA Administration Hydromorphone HCl 1 mg 01/09/25 16:27 Hydromorphone Hcl Inj (*Crx) 1 Mg/Ml Syr IV PUSH Q2H PRN Breakthrough Pain Rated 7-10 or NPO Hydromorphone HCl 0.5 mg 01/09/25 16:27 Hydromorphone Hcl Inj (*Crx) 1 Mg/Ml Syr IV PUSH Q2H PRN Breakthrough Pain Rated 4-6 or NPO Ibuprofen 800 mg in 200 mls @ 400 mls/hr 01/09/25 16:27 Caldolor 800 Mg/200 Ml IVPB Q6H PRN Breakthrough Pain Rated 1-3 or NPO Levothyroxine Sodium 88 mcg 01/10/25 06:30 01/11/25 06:45 Levothyroxine Sodium 88 Mcg Tablet PO 88 mcg DAILY@0630 [facility] Administration Losartan Potassium 100 mg 01/10/25 09:00 01/11/25 08:50 Losartan Potassium 100 Mg Tablet PO 100 mg DAILY FELICITA Administration Metoprolol Succinate 100 mg 01/10/25 09:00 01/11/25 08:50 Metoprolol Succinate Ext Rel 50 Mg Tabcr BY MOUTH 100 mg DAILY FELICITA Administration Naloxone HCl 0.1 mg 01/09/25 16:27 Naloxone Hcl 0.4 Mg/Ml Vial IV PUSH Q2M PRN Opiate Reversal Ondansetron HCl 4 mg 01/09/25 16:27 01/10/25 08:26 Ondansetron Inj 4 Mg/2 Ml Vial IV PUSH 4 mg Q4H PRN Administration Nausea And Vomiting Oxycodone/Acetaminophen 1 tablet 01/09/25 16:27 01/11/25 08:48 Oxycodone/Acetaminophen (*Crx) 5-325 Mg Tablet PO 1 tablet Q4H PRN Administration Pain Rated 4-6 Oxycodone/Acetaminophen 1 tab 01/09/25 16:27 01/10/25 20:53 Oxycodone/Acetaminophen (*Crx) 10-325 Mg Tablet PO 1 tab Q6H PRN Administration Pain Rated 7-10 Polyethylene Glycol 17 gm 01/10/25 09:00 01/11/25 08:50 Polyethylene Glycol 3350 17 Gm Powd.Pack PO 17 gm QAM FELICITA Administration Senna/Docusate Sodium 2 tab 01/09/25 17:00 01/11/25 08:49 Senna/Docusate Sodium Tablet PO 2 tab BID FELICITA Administration Radiology Results: ITS Impressions Hip X-Ray 01/09/25 15:51 IMPRESSION: No acute osseous abnormality in the right hip. Right hip arthroplasty.
[2025-01-11] MEDS: FLUTICASONE/UMECLIDIN/VILANTER 100-62.5-25 MCG ELLIPTA 1 PUFF INHALATION (09:15)
[2025-01-11 09:38] LABS: Hematocrit 30.7 % (37.0-47.0); Mean Corpuscular HGB Conc 32.6 g/dl (32-36); Mean Corpuscular Hemoglobin 30.2 pg (26-34); Mean Corpuscular Volume 92.7 fl (80-100); Mean Platelet Volume 9.4 fl (7.4-10.4); Platelet Count Result 309 k/mm3 (150-375); Red Blood Count 3.31 M/mm3 (4.2-5.4); Red Cell Distribution Width 13.5 % (11.5-14.5); White Blood Count 16.4 K/mm3 (4.5-10.0)
[2025-01-11 09:51] LABS: Potassium 4.4 mmol/L (3.4-5.0)
--- NOTE | 2025-01-11 09:52 | P.DS_ITS ---
DS: Admitting Diagnosis Discharge Date 01/11/25 Admitting Diagnosis Right Hip DJD DS: Discharge Diagnosis Discharge Diagnosis (1) S/P total hip arthroplasty: Qualifiers: Laterality: right Qualified Code(s): Z96.641 - Presence of right artificial hip joint Code(s): Z96.649 - Presence of unspecified artificial hip joint Status: Acute Assessment and Plan: POD #2: Right ARUN Continue PT/OT. WBAT. Walker. HIGH FALL RISK. Labs stable. Vitals stable. Continue pain control. Ice Hip. Protect skin. DVT prophylaxis with Aspirin. SCDs. Incentive Spirometry Use reviewed. Monitor Dressing. Change prior to discharge. Bowel Regimen. Dispo: Home with Home Health today Follow up scheduled in the outpatient orthopedic clinic. DS: Summary Hospital Course Reason for hospitalization: Right ARUN Hospital Course: 64 year old female admitted s/p Right ARUN for postoperative medical management, pain control and mobilization with PT/OT. Patient progressed well with PT/OT. Pain and vitals remained stable throughout. Difficulty with nausea on POD #1. Resolved on POD #2. She is now stable for discharge. The patient has been cleared to be discharged home with home health at this time. All discharge care instructions reviewed at depth. New medications reviewed. Follow up planned for 3 weeks in the outpatient orthopedic clinic with Dr. Santoyo. Status at Discharge Functional status at discharge: uses cane/walker Overall status at discharge: patient is progressing back to baseline Time Spent with Patient Time attestation: Total time spent providing and/or coordinating discharge services: Exam Const: General: comfortable and no acute distress Resp: Effort & Inspection: normal respiratory effort Cardio: Rate: regular rate Rhythm: regular rhythm GI: Inspection: non-distended Skin: General skin exam: normal color Other: Incision right hip c/d/i. Surrounding tissue without redness/warmth. Mild swelling consistent with recent surgery. No drainage. Neuro: Cognition (Neuro): normal cognition Speech: normal speech Extrem: Right lower extremity: normal to inspection, normal capillary refill, hip/thigh Details: tenderness Location: of the hip (Thigh soft ) Location: laterally and anteriorly, swelling Location: at the hip, abnormal ROM (limited consistent with recent surgery ) Details: pain with active ROM during and pain with passive ROM during and other (Incision c/d/i. ); no deformity and no unusual warmth, knee Details: normal to inspection; no tenderness and no swelling, lower leg (Negative Leslie's Sign ) Details: normal to inspection and no edema; no tenderness, ankle (+ankle dorsiflexion/plantarflexion) Details: normal to inspection and no edema; no tenderness, no swelling and no ecchymosis and foot Details: normal capillary refill, toes with normal ROM, vascular exam Details: dorsalis pedis pulse present and motor-sensory exam Details: light- touch normal; no tenderness DS: Data Data Completed and Pending Labs on day of discharge: Labs from last 24 hours 01/11/25 09:06 WBC 16.4 H RBC 3.31 L Hgb 10.0 L Hct 30.7 L MCV 92.7 MCH 30.2 MCHC 32.6 RDW 13.5 Plt Count 309 MPV 9.4 Sodium Pending Potassium 4.4 Chloride Pending Carbon Dioxide Pending Anion Gap Pending BUN Pending Creatinine Pending Estim Creat Clear Calc Pending Estimated GFR Pending Glucose Pending Calcium Pending Discharge Plan Discharge Patient Disposition: Home Health Service Discharge Instructions: Per Care Coordination: [facility] ([phone]) will call to set up initial visit. RN please fax discharge paperwork to [phone] Post Op Total Hip Replacement Instructions Dr. Jared Santoyo [phone] * Your dressing will be changed prior to your discharge. You will be sent home with one additional dressing to be changed on post op day 7 by the home health RN. You may remove the dressing on post op day 14. Your incision was closed with dermabond, allow the dermabond to fall off naturally once your dressing is removed. Do not pull at the dermabond or disrupt incision healing. * You may shower with your dressing but do not submerge in a bath tub. * Do not drive or operate machinery until you are released by Dr. Santoyo. * Do not walk without a walker for any reason until you are released by Dr. Santoyo. * Continue to apply ice to the hip intermittently for additional pain relief. Protect your skin with a towel or pillow case. * Continue to follow strict total hip replacement precautions. * Your first post op appointment was sent to you via mail preoperatively. If you have any questions or are unable to make your appointment, please contact our office for scheduling questions. * Your medications have been sent to your pharmacy. You have been sent home with pain medication. Please picking tech an over the counter stool softener to prevent constipation due to narcotic use. Please keep this in mind during your postoperative recovery. If you are not experiencing regular bowel movements, please contact our office for further instructions. * Please contact our office with any questions/concerns regarding your hip at [phone]. Patient Instructions: Antibiotic Form Patient Language: Pakistani Stand Alone Forms: General Discharge Information Follow-up/Referrals: Jared Santoyo MD [Physician] - Keep Reg. Scheduled Appt. Discharge Medications: New oxycodone-acetaminophen 5-325 mg Tablet 1 - 2 tablet PO Q4-6H PRN (Reason: pain) Qty: 40 0RF aspirin 325 mg Tablet,Delayed Release (Dr/Ec) 325 mg PO Q12HR 28 Days Qty: 56 0RF Continued Breztri Aerosphere 160-9-4.8 mcg/actuation HFA aerosol inhaler 2 inh inhalation QAM AND QPM Qty: 10.7 1RF (DME) nebulizer and supplies See Rx Instructions .Route .MEDSUPPLY Qty: 1 0RF Rx Instructions: As directed montelukast 10 mg tablet See Rx Instructions .ROUTE .COMPLEX Qty: 90 1RF Dose Instruction: TAKE 1 TABLET BY MOUTH EVERY DAY IN THE EVENING Rx Instructions: TAKE 1 TABLET BY MOUTH EVERY DAY IN THE EVENING cyclobenzaprine 10 mg tablet 10 mg PO TID PRN (Reason: muscle spasm) Qty: 30 5RF meloxicam 7.5 mg tablet See Rx Instructions .ROUTE .COMPLEX Qty: 30 3RF Dose Instruction: TAKE 1 TABLET BY MOUTH EVERY DAY Patient Comments: HOLD 1 week before surgery per [facility] Rx Instructions: TAKE 1 TABLET BY MOUTH EVERY DAY citalopram 20 mg tablet See Rx Instructions .ROUTE .COMPLEX Qty: 90 1RF Dose Instruction: TAKE ONE TABLET BY MOUTH ONCE DAILY Rx Instructions: TAKE ONE TABLET BY MOUTH ONCE DAILY metoprolol succinate 50 mg tablet extended release 24 hr See Rx Instructions .ROUTE .COMPLEX Qty: 180 3RF Dose Instruction: TAKE 2 TABLETS BY MOUTH DAILY Rx Instructions: TAKE 2 TABLETS BY MOUTH DAILY levothyroxine 88 mcg tablet 88 mcg PO DAILY Qty: 90 1RF albuterol sulfate 90 mcg/actuation HFA aerosol inhaler See Rx Instructions .ROUTE .COMPLEX Qty: 8.5 5RF Dose Instruction: INHALE 2 PUFFS BY MOUTH EVERY 4 HOURS NEEDED FOR SHORTNESS OF BREATH OR WHEEZING. Rx Instructions: INHALE 2 PUFFS BY MOUTH EVERY 4 HOURS NEEDED FOR SHORTNESS OF BREATH OR WHEEZING. losartan 100 mg tablet 100 mg PO DAILY Qty: 30 0RF ipratropium bromide 0.02 % solution 2.5 ml inhalation Q8H PRN (Reason: shortness of breath or wheezing) Qty: 150 5RF albuterol sulfate 0.63 mg/3 mL solution for nebulization 0.63 mg inhalation Q4-6H PRN (Reason: shortness of breath or wheezing) Qty: 270 5RF Discontinued chlorhexidine gluconate [Hibiclens] 4 % liquid 1 applic topical ONCE Qty: 237 0RF Rx Instructions: Cleanse operative extremity, in shower, every day for 1 week prior to surgical procedure. Quality VTE Prophylaxis VTE prophylaxis: mechanical ordered
[2025-01-11 10:25] LABS: Anion Gap 8 mmol/L (4-12); Blood Urea Nitrogen 9 mg/dL (7-17); Calcium 9.2 mg/dL (8.4-10.2); Carbon Dioxide 26 mmol/L (22-30); Chloride 101 mmol/L (98-107); Estimated CRCL calculation 65 ml/min; Estimated Glomerular Filt Rate > 60; Glucose 131 mg/dL (65-110); Sodium 135 mmol/L (137-145)
== END 2025-01-11 13:20 | disposition home health service (06) ==
LOC: ANHSURGERY 10:31 → ANH3MEDSUR 16:34
PROVIDERS: Nurse Practitioner Family; PCP Family Medicine; Visit Provider Orthopaedic Surgery
PROC: (CPT 27130; principal; 2025-01-09 12:30)
DX: M16.11 Unilateral primary osteoarthritis, right hip (principal); I10 Essential (primary) hypertension; K21.9 Gastro-esophageal reflux disease without esophagitis; E03.9 Hypothyroidism, unspecified; E78.2 Mixed hyperlipidemia; F41.9 Anxiety disorder, unspecified; M19.049 Primary osteoarthritis, unspecified hand; F12.90 Cannabis use, unspecified, uncomplicated; Z79.51 Long term (current) use of inhaled steroids; Z98.890 Other specified postprocedural states; Z87.891 Personal history of nicotine dependence; Z92.240 Personal history of inhaled steroid therapy; Z80.3 Family history of malignant neoplasm of breast
CPT/HCPCS: 27130; 36415; 73502; 80048; 85025; 85027; 86850; 86900; 86901; 94640; 97110; 97116; 97161; 97165; 97530; 97535; A9270; C1776; J0171; J0690; J1596; J1885; J2270; J2405; J2704; J2710; J2795; J3010; J7030; J7120